=== PATIENT | female | born 1930 | race Asian ===

== ENCOUNTER 2017-11-22 10:49 | Inpatient (IN) | payer OTHER ==
--- NOTE | 2017-11-22 11:45 | EDPHY ---
H & P Stated Complaint: vomiting since yesterday, ESRD, cough Time Seen by Provider: 11/22/17 11:21 HPI/ROS: CHIEF COMPLAINT: Vomiting Limitations: Patient nonverbal, history through the patient's daughter HISTORY OF PRESENT ILLNESS: 87-year-old female with end-stage renal disease and advanced dementia presents with 2 day history of vomiting. Onset of increasing fatigue 1 week ago. Vomiting started yesterday, unable to tolerate oral fluids or food. Associated with a moist cough and generalized weakness. No fever or SOB. History of end-stage renal disease, not on dialysis. Uses a walker to ambulate at home, now too weak to ambulate. Lives at home with daughter and son-in-law. REVIEW OF SYSTEMS: unable to obtain Source: Family Exam Limitations: Clinical condition - Medical/Surgical History Hx Asthma: No Hx Chronic Respiratory Disease: No Hx Diabetes: No Hx Cardiac Disease: No Hx Renal Disease: Yes Hx Cirrhosis: No Hx Alcoholism: No Hx HIV/AIDS: No Hx Splenectomy or Spleen Trauma: No Other PMH: ESRD. htn, dementia - Social History Smoking Status: Never smoked - Physical Exam Exam: General Appearance: Alert, nonverbal, greyish skin color Eyes: Pupils equal and round, no conjunctival pallor or injection ENT, Mouth: Mucous membranes dry Neck: Normal inspection Respiratory: Rhonchi at the bases Cardiovascular: Regular rate and rhythm Gastrointestinal: Abdomen is soft, no apparent tenderness Neurological: Alert, moves all extremities Skin: Warm and dry Extremities: Normal inspection Psychiatric: Unable to determine Constitutional: Initial Vital Signs Temperature (C) 36.8 C 11/22/17 10:54 Heart Rate 71 11/22/17 10:54 Respiratory Rate 18 11/22/17 10:54 Blood Pressure 174/81 H 11/22/17 10:54 O2 Sat (%) 90 L 11/22/17 10:54 O2 Delivery Mode Room Air Allergies/Adverse Reactions: Cephalosporins Allergy (Severe, Verified 11/22/17 14:04) Other-Enter Comments ertapenem Allergy (Severe, Verified 11/22/17 14:04) Other-Enter Comments penicillin G Allergy (Severe, Verified 11/22/17 14:04) Home Medications: Medication Instructions Recorded Ferrous Sulfate 300 mg PO DAILY 11/22/17 Metoprolol Succinate [Toprol Xl] 25 mg PO HS 11/22/17 NIFEdipine ER [Adalat CC 30 mg (*)] 7.5 mg PO DAILY PRN 11/22/17 Sevelamer Carbonate [RENVELA] 0.8 gm PO BID 11/22/17 Sodium Bicarbonate [Na Bicarb 650 650 mg PO BID 11/22/17 MG (RX)] Medical Decision Making - Diagnostics EKG Interpretation: EKG interpreted by me reveals first degree AV block, rate 78, no ST/T changes. Interpretation: abnormal EKG Imaging Results: CXR: LLL infiltrate ED Course/Re-evaluation: 12:30 p.m.-chest x-ray reveals a left lower lobe infiltrate and potassium is 6.2. At this point, I had a prolonged discussion with the patient's daughter, has medical power of finance attorney for health care. The patient is DNR and they do not wish for aggressive care. Specifically, no central line access. They request IV fluids and treatment for hyperkalemia and pneumonia. Understand serious nature of illness. She has had previous adverse reactions to penicillin and Invanz. Blood cultures were drawn and Levaquin 750 mg IV and Clindamycin IV given. IV NS 1 liter given. She does not meet SIRS criteria, so for this reason and the family's wish for no aggressive care, including no central line placement, and lactate was not ordered. Standard treatment for hyperkalemia initiated. This pt utilized 35 minutes of critical care time exclusive of unbundled procedures by me. Time spent in multiple assessments of pt, consultations with family, hospitalist, treatment of hyperkalemia and pneumonia. Differential Diagnosis: includes though not limited to dysrhythmia, respiratory failure, empyema, SBO, bowel perforation. - Data Points Laboratory Results: Laboratory Results 11/22/17 11:40 11/22/17 11:40 Medications Given: Discontinued Medications Calcium Gluconate (Calcium Gluconate) 1 gm IVP EDNOW ONE Stop: 11/22/17 12:28 Last Admin: 11/22/17 13:34 Dose: 1 gm Dextrose (Dextrose 50% Syringe) 25 gm IVP EDNOW ONE Stop: 11/22/17 12:28 Last Admin: 11/22/17 13:34 Dose: 25 gm Heparin Sodium (Porcine) (Heparin Sc Injection) 5,000 unit SC Q8 NIDA Stop: 05/21/18 13:59 Last Admin: 11/23/17 18:34 Dose: Not Given Sodium Chloride (Ns) 300 mls @ 1,000 mls/hr IV EDNOW ONE PRN Reason: Protocol Stop: 11/22/17 12:19 Last Admin: 11/22/17 12:12 Dose: 300 mls Levofloxacin/Dextrose (Levaquin 750 Mg (Premix)) 150 mls @ 100 mls/hr IV EDNOW ONE PRN Reason: Protocol Stop: 11/22/17 14:04 Last Admin: 11/22/17 13:33 Dose: 150 mls Clindamycin Phosphate/Dextrose (Cleocin 600 Mg (Premix)) 50 mls @ 100 mls/hr IV EDNOW ONE PRN Reason: Protocol Stop: 11/22/17 13:20 Last Admin: 11/22/17 13:33 Dose: 50 mls Meropenem 500 mg/ Sodium (Chloride) 100 mls @ 100 mls/hr IV Q24H NIDA Stop: 12/22/17 16:14 Last Admin: 11/22/17 17:10 Dose: Not Given Clindamycin Phosphate/Dextrose (Cleocin 600 Mg (Premix)) 50 mls @ 100 mls/hr IV Q8H NIDA Stop: 12/22/17 21:29 Last Admin: 11/23/17 13:56 Dose: 50 mls Sodium Chloride (Ns) 1,000 mls @ 50 mls/hr IV CONT NIDA Stop: 05/22/18 13:29 Last Admin: 11/23/17 13:56 Dose: 1,000 mls Insulin Human Regular (Humulin R) 10 unit IVP EDNOW ONE Stop: 11/22/17 12:28 Last Admin: 11/22/17 13:35 Dose: 10 units Metoprolol Succinate (Toprol Xl) 25 mg PO HS NIDA Stop: 05/21/18 20:59 Last Admin: 11/22/17 19:48 Dose: 25 mg Morphine Sulfate (Morphine) 2 - 4 mg IVP Q1HR PRN PRN Reason: Pain, Severe Unable to Take PO Stop: 12/03/17 13:21 Last Admin: 11/23/17 15:09 Dose: 2 mg Ondansetron HCl (Zofran) 4 mg IVP EDNOW ONE Stop: 11/22/17 12:03 Last Admin: 11/22/17 12:12 Dose: 4 mg Ondansetron HCl (Zofran) 4 mg IVP EDNOW ONE Stop: 11/22/17 12:03 Last Admin: 11/22/17 12:13 Dose: Not Given Ondansetron HCl (Zofran Odt) 4 mg PO Q4HRS PRN PRN Reason: Nausea/Vomiting, Use 1st Stop: 05/21/18 13:26 Last Admin: 11/23/17 09:52 Dose: 4 mg Sevelamer HCl (Renagel) 800 mg PO BID NIDA Stop: 05/21/18 20:59 Last Admin: 11/23/17 09:56 Dose: 800 mg Sodium Bicarbonate (Na Bicarb) 650 mg PO BID NIDA Stop: 05/21/18 20:59 Last Admin: 11/23/17 09:56 Dose: 650 mg Sodium Polystyrene Sulfonate (Kayexalate) 30 gm [place] EDNOW ONE Stop: 11/22/17 12:28 Last Admin: 11/22/17 12:46 Dose: Not Given Departure - Departure Disposition: [facility] Acute Clinical Impression: Hyperkalemia Pneumonia Qualifiers: Pneumonia type: due to unspecified organism Laterality: left Lung location: lower lobe of lung Qualified Code(s): J18.1 - Lobar pneumonia, unspecified organism Condition: Serious
[2017-11-22] MEDS ORDERED: NS 300 ML IV ONE (12:02)
[2017-11-22] MEDS ORDERED: ONDANSETRON 4 MG/2 ML VIAL IVP ONE ×2 (12:02)
[2017-11-22 12:25] LABS: PLATELET COUNT 225 10^3/uL (150-400)
[2017-11-22] MEDS ORDERED: D50W 25 GM/50 ML SYR IVP ONE (12:27)
[2017-11-22] MEDS ORDERED: INSULIN REGULAR HUMAN 100 UNIT/ML UNIT IVP ONE (12:27)
[2017-11-22] MEDS ORDERED: CALCIUM GLUC 10% 1 GM/10 ML VIAL IVP ONE (12:27)
[2017-11-22] MEDS ORDERED: SODIUM POLY SULF 15 GM/60 ML BOTTLE PR ONE (12:27)
[2017-11-22] MEDS ORDERED: CLINDAMYCIN 600 MG/DEXTROSE 50 ML IV ONE (12:51)
[2017-11-22] MEDS ORDERED: ONDANSETRON DISINTEGRATING 4 MG TAB PO PRN (13:27)
[2017-11-22] MEDS ORDERED: ALBUTEROL 3 ML DEYVIAL IH PRN (13:27)
[2017-11-22] MEDS ORDERED: oxyCODONE IR 5 MG TAB PO PRN (13:27)
[2017-11-22] MEDS ORDERED: ONDANSETRON 4 MG/2 ML VIAL IVP PRN (13:27)
[2017-11-22] MEDS ORDERED: ACETAMINOPHEN 325 MG TAB PO PRN (13:27)
[2017-11-22] MEDS ORDERED: PROMETHAZINE HCL 25 MG/ML INJ IVP PRN (13:27)
[2017-11-22] MEDS: HEPARIN 5,000 UNIT/0.5 ML INJ SC SCH ×2 (15:37→21:35)
--- NOTE | 2017-11-22 15:55 | PDGENHP ---
History and Physical - Chief Complaint vomiting/cough - History of Present Illness 87 yo F with severe dementia admitted with family for concerns of n/v and productive cough. Patient had been at her usual baseline up until the last couple of days when she was noted to be vomiting, there was concern she was gagging and perhaps aspirated. Today she was found to have a more productive cough, and seemed to be working harder to breathe. She also was noted to have decreased UOP today. She is followed by renal for ESRD but has not been placed on HD given her severe dementia. Her appetite has remained at baseline. She has not had fever or chills. History is obtained by patients daughter and son in law present at bedside given patients mental status. History Information - Allergies/Home Medication List Allergies/Adverse Reactions: Cephalosporins Allergy (Severe, Verified 11/22/17 14:04) Other-Enter Comments ertapenem Allergy (Severe, Verified 11/22/17 14:04) Other-Enter Comments penicillin G Allergy (Severe, Verified 11/22/17 14:04) Home Medications: Ferrous Sulfate 300 mg PO DAILY 11/22/17 [Last Taken 11/21/17] Metoprolol Succinate [Toprol Xl] 25 mg PO HS 11/22/17 [Last Taken 11/21/17] NIFEdipine ER [Adalat CC 30 mg (*)] 7.5 mg PO DAILY PRN 11/22/17 [Last Taken ] Sevelamer Carbonate [RENVELA] 0.8 gm PO BID 11/22/17 [Last Taken 11/21/17] Sodium Bicarbonate [Na Bicarb 650 MG (RX)] 650 mg PO BID 11/22/17 [Last Taken ] I have personally reviewed and updated: family history, medical history, social history, surgical history - Past Medical History dementia, hypertension Additional medical history: CKd. anemia--on procrit - Surgical History Reports: no pertinent surgical hx - Family History Additional family history: parents - Social History Smoking Status: Never smoked Alcohol Use: None Drug Use: None Additional social history: originally from [place], lives in [place] and [place] part of the year. 2 daughters Review of Systems Review of Systems: unobtainable given mental status Physical Exam Physical Exam: Temp Pulse Resp BP Pulse Ox 36.8 C 83 16 173/70 H 93 11/22/17 10:54 11/22/17 14:49 11/22/17 14:49 11/22/17 14:49 11/22/17 14:49 Constitutional: chronically ill appearing, uncomfortable Eyes: PERRL Ears, Nose, Mouth, Throat: moist mucous membranes, poor dentition Cardiovascular: regular rate and rhythym, no murmur, rub, or gallop, No edema Respiratory: no respiratory distress, expiratory wheeze, bronchial breath sounds Gastrointestinal: normoactive bowel sounds, soft, non-tender abdomen Skin: warm, normal color Musculoskeletal: full muscle strength Neurologic: CN II-XII Intact, No AAOx3 Psychiatric: anxious Lab Data & Imaging Review 11/22/17 11:40 11/22/17 11:40 WBC 14.06 10^3/uL (3.80-9.50) H 11/22/17 11:40 RBC 3.26 10^6/uL (4.18-5.33) L 11/22/17 11:40 Hgb 9.8 g/dL (12.6-16.3) L 11/22/17 11:40 POC Hgb 9.5 gm/dL (12.6-16.3) L 11/22/17 13:22 Hct 30.7 % (38.0-47.0) L 11/22/17 11:40 POC Hct 28 % (38-47) L 11/22/17 13:22 MCV 94.2 fL (81.5-99.8) 11/22/17 11:40 MCH 30.1 pg (27.9-34.1) 11/22/17 11:40 MCHC 31.9 g/dL (32.4-36.7) L 11/22/17 11:40 RDW 15.4 % (11.5-15.2) H 11/22/17 11:40 Plt Count 225 10^3/uL (150-400) 11/22/17 11:40 MPV 9.5 fL (8.7-11.7) 11/22/17 11:40 Neut % (Auto) 94.8 % (39.3-74.2) H 11/22/17 11:40 Lymph % (Auto) 1.6 % (15.0-45.0) L 11/22/17 11:40 [place] % (Auto) 3.1 % (4.5-13.0) L 11/22/17 11:40 Eos % (Auto) 0.0 % (0.6-7.6) L 11/22/17 11:40 Baso % (Auto) 0.1 % (0.3-1.7) L 11/22/17 11:40 Nucleat RBC Rel Count 0.1 % (0.0-0.2) 11/22/17 11:40 Absolute Neuts (auto) 13.33 10^3/uL (1.70-6.50) H 11/22/17 11:40 Absolute Lymphs (auto) 0.22 10^3/uL (1.00-3.00) L 11/22/17 11:40 Absolute Monos (auto) 0.44 10^3/uL (0.30-0.80) 11/22/17 11:40 Absolute Eos (auto) 0.00 10^3/uL (0.03-0.40) L 11/22/17 11:40 Absolute Basos (auto) 0.01 10^3/uL (0.02-0.10) L 11/22/17 11:40 Absolute Nucleated RBC 0.01 10^3/uL (0-0.01) 11/22/17 11:40 Immature Gran % 0.4 % (0.0-1.1) 11/22/17 11:40 Immature Gran # 0.06 10^3/uL (0.00-0.10) 11/22/17 11:40 RBC/WBC/PLT Morphology TNP 11/22/17 11:40 Platelet Estimate TNP 11/22/17 11:40 POC Sodium 129 mEq/L (135-145) L 11/22/17 13:22 Sodium 134 mEq/L (135-145) L 11/22/17 11:40 POC Potassium 6.3 mEq/L (3.3-5.0) H* 11/22/17 13:22 Potassium 6.2 mEq/L (3.3-5.0) H 11/22/17 11:40 POC Chloride 107 mEq/L (97-110) 11/22/17 13:22 Chloride 102 mEq/L (97-110) 11/22/17 11:40 Carbon Dioxide 14 mEq/l (22-31) L 11/22/17 11:40 Anion Gap 18 mEq/L (8-16) H 11/22/17 11:40 POC BUN 105 mg/dL (7-23) H* 11/22/17 13:22 BUN 93 mg/dL (7-23) H 11/22/17 11:40 Creatinine 6.2 mg/dL (0.6-1.0) H 11/22/17 11:40 POC Creatinine 6.8 mg/dL (0.6-1.0) H 11/22/17 13:22 Estimated GFR 6 11/22/17 11:40 Glucose 126 mg/dL (70-100) H 11/22/17 11:40 POC Glucose 124 mg/dL (70-100) H 11/22/17 13:22 Calcium 10.8 mg/dL (8.5-10.4) H 11/22/17 11:40 Phosphorus 8.6 mg/dL (2.5-4.5) H 11/22/17 11:40 Magnesium 2.9 mg/dL (1.6-2.3) H 11/22/17 11:00 Total Bilirubin 0.4 mg/dL (0.1-1.4) 11/22/17 11:40 Conjugated Bilirubin 0.4 mg/dL (0.0-0.5) 11/22/17 11:40 Unconjugated Bilirubin 0.0 mg/dL (0.0-1.1) 11/22/17 11:40 AST 30 IU/L (14-46) 11/22/17 11:40 ALT 44 IU/L (9-52) 11/22/17 11:40 Alkaline Phosphatase 158 IU/L (38-126) H 11/22/17 11:40 Total Protein 7.6 g/dL (6.3-8.2) 11/22/17 11:40 Albumin 3.7 g/dL (3.5-5.0) 11/22/17 11:40 Lipase 1171 IU/L (23-300) H 11/22/17 11:40 Visualized and Interpreted Chest x-ray results: Yes Chest X-Ray results: other (LLL pna versus mass) Assessment & Plan Assessment: Hyperkalemia (Acute) Pneumonia (Acute) 87 yo F with hx of ESRD not on HD admitted with LLL pna # LLL pna: likely aspiration given history, there is suggestion that this could be a mass however given clinical scenario suspect pna. Started on clindamycin/ levaquin in the ER--will transition to meropenem given that patient has severe cephalosporin/pcn allergy and with concern for c diff with clinda. # ESRD: per family this fluctuates some and is followed by Dr. Vlae when in [place] , will continue to monitor, no HD given baseline functional status and family wishes. # hyperkalemia: in setting of above, this is likely somewhat chronic, will monitor on tele, obtain ecg, start kayaxelate # htn: continue usual medications, hydralazine prn, does not appear volume overloaded # severe dementia: at baseline she is minimally verbally interactive, reviewed with daughter, she is currently less interactive as next # acute encephalopathy: suspect toxic metabolic encephalopathy in setting of pna and with underlying severe dementia, monitoring # IP status DNR Patient new to my care. Care plan revieewed with ER doctor as above. hx obtained from family present at bedside.
[2017-11-22] MEDS ORDERED: NIFEdipine ER 30 MG TAB PO PRN (15:58)
[2017-11-22] MEDS ORDERED: hydrALAZINE 20 MG/ML VIAL IVP PRN (16:02)
[2017-11-22] MEDS ORDERED: MEROPENEM 500 MG in NS 100 ML IV SCH (16:15)
--- NOTE | 2017-11-22 17:10 | CPEKG ---
Heart Rate: 84 RR Interval: 714 P-R Interval: 236 QRSD Interval: 100 QT Interval: 420 QTC Interval: 497 P [place]: 81 QRS [place]: 67 T Wave [place]: 73 EKG Severity - ABNORMAL ECG - EKG Impression: SINUS RHYTHM EKG Impression: FIRST DEGREE AV BLOCK EKG Impression: BORDERLINE PROLONGED QT INTERVAL Electronically Signed By: Ken Anthony 24-Nov-2017 10:28:19
[2017-11-22] MEDS ORDERED: CLINDAMYCIN 600 MG/DEXTROSE 50 ML IV SCH (17:15)
--- NOTE | 2017-11-22 17:36 | PDMN ---
Medical Necessity Medical necessity: C/M review: Patient meets INPT criteria under [facility] [id number] Pneumonia due to aspiration: Acute and persistent left lower lobe pneumonia likely aspiration given history (seen on CXR), hyperkalemia, acute encephalopathy - suspect toxic metabolic encephalopathy, WBC 14.06, Na 129, K 6.2, BUN 93, Cr 6.2, Ca 10.8, hos 8.6, Mag 2.9, Alk phos 158, Lipase 1171, requiring planned Case Management consult, ongoing, IV Clindamycin Q 8 hrs., cardiac monitoring, pulse oximetry, supplemental O2, acute inpt PT/OT, comorbid patient vomiting for two days prior to this admission, history of ESRD not on dialysis, hypertension, severe dementia..MD anticipates > 2 MN LOS for ongoing med nec for eval and TX of above.
[2017-11-22] MEDS: SODIUM BICARBONATE 650 MG TAB PO SCH (19:48)
[2017-11-22] MEDS: SEVELAMER HCL 800 MG TAB PO SCH (19:48)
[2017-11-22] MEDS ORDERED: METOPROLOL SUCCINATE XR 25 MG TAB PO SCH (21:00)
[2017-11-22] MEDS ORDERED: MEROPENEM 1 GM in NS 100 ML IV SCH (21:00)
[2017-11-22] MEDS: CLINDAMYCIN 600 MG/DEXTROSE 50 ML IV SCH (21:34)
[2017-11-23 04:36] LABS: PLATELET COUNT 185 10^3/uL (150-400)
[2017-11-23] MEDS: CLINDAMYCIN 600 MG/DEXTROSE 50 ML IV SCH ×2 (05:47→13:56)
[2017-11-23] MEDS: HEPARIN 5,000 UNIT/0.5 ML INJ SC SCH ×2 (05:51→18:34)
--- NOTE | 2017-11-23 09:42 | ASMTCMCOM ---
CM Note CM Note Notes: Chart reviewed. Patient is 87 year old female with severe dementia admitted with PNA. She has ESRD. She is a DNR. Her daughter Leni is her MDPOA,, Copies requested of documentation. #[phone]. Needs to be determined. CM to follow. Plan: TBD Date Signed: 11/23/2017 09:42 AM Electronically Signed By:Liz Cox RN
[2017-11-23] MEDS: SODIUM BICARBONATE 650 MG TAB PO SCH (09:56)
[2017-11-23] MEDS: SEVELAMER HCL 800 MG TAB PO SCH (09:56)
[2017-11-23 12:53] VITALS: BP 99/45
[2017-11-23] MEDS ORDERED: morphINE 10 MG/0.5 ML UDSYR PO PRN (13:22)
[2017-11-23] MEDS ORDERED: HALOPERIDOL LACT 5 MG/ML INJ IVP PRN (13:22)
[2017-11-23] MEDS ORDERED: SCOPOLAMINE HYDROBROMIDE 1 MG/3 DAYS PATCH TD PRN (13:28)
[2017-11-23] MEDS ORDERED: LORazepam 2 MG/ML INJ IVP PRN (13:28)
[2017-11-23] MEDS ORDERED: NS 1,000 ML IV SCH (13:30)
--- NOTE | 2017-11-23 15:38 | HOSPPROG ---
Hospitalist Progress Note Assessment/Plan: 87 yo F with hx of ESRD not on HD admitted with LLL pna due to aspiration # LLL pna: 2/2 aspiration, patient had recurrent aspiration events in house and respiratory status has significantly worsened as next. Abx started with clinda and levofloxacin. # acute hypoxic respiratory failure: initially was saturating well on RA when arrived, but has desaturated and now on 40L vapotherm has continued to desaturate to the 70s--responded to stat call earlier in the day. RT has performed deep suction with minimal improvement. Discussed with daughter, and they would definitely not like more aggressive management, though the goal would be to keep her alive until family arrives later today. Will transition to bipap, continue prn suction and tx of pna as above. # ESRD: per family this fluctuates some and is followed by Dr. Vale when in [place] , will continue to monitor, no HD given baseline functional status and family wishes. # hyperkalemia: in setting of above, this is likely somewhat chronic, improved s /p kayaxelate # htn: continue usual medications, hydralazine prn, does not appear volume overloaded # severe dementia: at baseline she is minimally verbally interactive, reviewed with daughter, she is currently less interactive as next # acute encephalopathy: suspect toxic metabolic encephalopathy in setting of pna and with underlying severe dementia, no improvement and now with significant hypoxia she has been continuing to decline in mental status # IP status--suspect patient will in the next 24 hours > 40 min of critical care time spent in above at patients bedside Subjective: this am patient aspirated, desaturating, not responsive Objective: Vital Signs Temp Pulse Resp BP Pulse Ox 35.8 C L 74 20 99/45 L 75 L 11/23/17 03:18 11/23/17 12:52 11/23/17 12:52 11/23/17 12:52 11/23/17 12:52 Microbiology 11/22/17 15:57 Respiratory Panel (PCR) - Final Nasal, Sinus - Swab No Organism Detected Laboratory Results 11/23/17 03:13 11/23/17 03:13 11/22/17 11/23/17 11/24/17 05:59 05:59 05:59 Intake Total 370 Balance 370 chronically ill appearing anicteric poor dentition rrr dec bs coarse upper airway bs no cce ICD10 Worksheet Patient Problems: Problems Problem Status Onset Pneumonia Acute Hyperkalemia Acute
--- NOTE | 2017-11-23 17:35 | PDDCSUM ---
Discharge Summary Discharge Summary: Summary: Dates 11/22-11/23/17 Consultations: none Procedures: none Hospital course by problem: 87 yo F with hx of ESRD not on HD admitted with LLL pna due to aspiration # LLL pna: 2/2 aspiration, patient had recurrent aspiration events in house and respiratory status has significantly worsened as next. Abx started with clinda and levofloxacin. Respiratory status did not improve as next # acute hypoxic respiratory failure: initially was saturating well on RA when arrived, but has desaturated and now on 40L vapotherm has continued to desaturate to the 70s. Transitioned to bipap with a goal to keep patient alive until able to come to see her, shortly after taking off bipap patient peacefully with family and staff at bedside. # ESRD: per family this fluctuates some and is followed by Dr. Vale when in [place] , will continue to monitor, no HD given baseline functional status and family wishes. # hyperkalemia: in setting of above, this is likely somewhat chronic, improved s /p kayaxelate # htn: continue usual medications, hydralazine prn, does not appear volume overloaded # severe dementia: at baseline she is minimally verbally interactive, reviewed with daughter, she is currently less interactive as next # acute encephalopathy: suspect toxic metabolic encephalopathy in setting of pna and with underlying severe dementia, no improvement and ultimately 2/2 above Time of 1645 11/23/17 > 35 min spent in support of family and patient
[2017-11-24] MEDS ORDERED: levOFLOXACIN 500 MG/DEXTROSE 100 ML IV SCH (09:00)
== END 2017-11-23 16:40 | disposition expired | DRG 177 ==
LOC: F2W 15:01
PROVIDERS: ADMIT Internal Medicine; ATTEND Internal Medicine
DX: J69.0 Pneumonitis due to inhalation of food and vomit (principal); J96.01 Acute respiratory failure with hypoxia; G93.40 Encephalopathy, unspecified; E87.5 Hyperkalemia; I12.0 Hypertensive chronic kidney disease with stage 5 chronic kidney disease or end stage renal disease; N18.6 End stage renal disease; F03.90 Unspecified dementia, unspecified severity, without behavioral disturbance, psychotic disturbance, mood disturbance, and anxiety; Z66 Do not resuscitate
CPT/HCPCS: 82947-QW; 92610-GN; 96374; 97161-GP; 97166-GO; 97530-GP; 97535-GO; G8978-GP-CN; G8979-GP-CM; G8987-GO-CN; G8988-GO-CL; J0610; J1644; J1815; J1956; J2185; J2270; J2405